=== PATIENT | male | born 1945 | race Hispanic/Latino ===

== ENCOUNTER 2018-03-20 10:51 | Emergency (ER) | payer OTHER ==
[~2018-03-20] VITALS: Ht 172.7 cm; Wt 61.1 kg
[2018-03-20 11:44] LABS: BASOPHIL (%) 0.4 % (0-1); EOSINOPHIL (%) 1.5 % (0-5); EOSINOPHIL COUNT 0.1 K/uL (0-0.3); HEMATOCRIT 40.2 % (38.0-50.0); HEMOGLOBIN 13.7 G/DL (12.5-16.6); IMMATURE GRANULOCYTE (%) 0.3 % (0.0-0.7); LYMPHOCYTE (%) 21.3 % (15-42); LYMPHOCYTE COUNT 1.7 K/uL (1.0-2.8); MCHC 34.1 G/DL (30.0-36.0); MONOCYTE (%) 6.1 % (3-12); MONOCYTE COUNT 0.5 K/uL (0-0.8); NEUTROPHIL (%) 70.4 % (45-76); NEUTROPHIL COUNT 5.6 K/uL (1.8-6.4); PLATELET COUNT 215 K/uL (156-360); RBC DIS.WIDTH-CV 11.9 % (11.8-14.6); RBC DIS.WIDTH-SD 39.5 % (39-53); RED BLOOD COUNT 4.42 M/uL (4.00-5.50)
[2018-03-20 11:54] LABS: CHLORIDE 106 mEq/L (99-109); POTASSIUM 3.8 mEq/L (3.7-5.4); SODIUM 142 mEq/L (136-147)
[2018-03-20 11:55] LABS: GLUCOSE 131 mg/dL (70-99)
[2018-03-20 11:59] LABS: CREATININE 1.1 mg/dL (0.6-1.3); GFR ESTIMATE (CALCULATED) > 59 mL/min/ (58.99-99999)
[2018-03-20 12:00] LABS: UREA NITROGEN (BUN) 17 mg/dL (9-23)
[2018-03-20 13:41] VITALS: BP 132/77
== END 2018-03-20 13:51 | disposition home or self-care (01) ==
LOC: EME → EDBD 10:51 → EME 13:51
PROVIDERS: Emergency Medicine
DX: R42 Dizziness and giddiness (principal); Z85.9 Personal history of malignant neoplasm, unspecified
CPT/HCPCS: 70450; 80048; 85025; 93005; 99281; 99285